=== PATIENT | female | born 1970 | race Caucasian/White ===

== ENCOUNTER → 2018-11-30 08:20 | Outpatient (CLI) | payer OTHER ==
[2018-11-30 09:15] LABS: HCG URINE NEGATIVE (NEGATIVE)
== END | disposition home or self-care (01) ==
LOC: D.CT 08:20
PROVIDERS: ATTEND Nurse Practitioner Family
DX: R19.00 Intra-abdominal and pelvic swelling, mass and lump, unspecified site (principal)

== ENCOUNTER → 2018-12-24 11:10 | Outpatient (CLI) | payer OTHER | END | disposition home or self-care (01) | LOC: D.RAD 11:10 | PROVIDERS: ATTEND Pain Medicine Interventional Pain Medicine | DX: M54.5 Low back pain (principal) ==

== ENCOUNTER → 2019-01-20 09:33 | Outpatient (CLI) | payer OTHER | END | disposition home or self-care (01) | LOC: D.US 09:33 | PROVIDERS: ATTEND Family Medicine | DX: N83.209 Unspecified ovarian cyst, unspecified side (principal) ==

== ENCOUNTER 2019-03-18 16:08 | Emergency (ER) | payer OTHER ==
[~2019-03-18] VITALS: Ht 170.2 cm; Wt 86.4 kg
[2019-03-18 16:16] VITALS: Ht 170.2 cm; Wt 86.4 kg
[2019-03-18] MEDS ORDERED: ULTRAM50 MG PO (16:18)
[2019-03-18] MEDS ORDERED: [UNRECOGNIZED DRUG - OTHER] (16:18)
[2019-03-18 16:45] LABS: BASOPHILS 0.4 % (0-2); EOSINOPHILS 1.6 % (0-7); IMMATURE GRANULOCYTES 0.4 % (0-5); LYMPHOCYTES 26.8 % (15-50); MCH 22.3 pg (26.0-34.0); MCHC 30.3 g/dL (31.0-37.0); MCV 73.5 fL (80.0-100.0); MEAN PLATELET VOLUME 9.5 fL (7.4-10.4); MONOCYTES 5.5 % (2-11); NEUTROPHILS 65.3 % (40-80); PLATELET COUNT 309 10x3/uL (130-400); RBC 4.49 10x6/uL (4.00-5.40); RDW 17.9 % (11.5-14.5); WBC 11.4 10x3/uL (4.8-10.8)
[2019-03-18 17:02] LABS: APTT 28.3 SECONDS (22.8-39.4); INR 0.98 (0.85-1.17); PROTIME 12.5 SECONDS (11.6-15.0)
[2019-03-18 17:13] LABS: ALBUMIN 3.4 g/dL (3.4-5.0); ALKALINE PHOSPHATASE 78 U/L (46-116); ALT (SGPT) 28 U/L (10-68); BILIRUBIN - TOTAL 0.47 mg/dL (0.2-1.3); CARBON DIOXIDE 30.3 mmol/L (21.0-32.0); CHLORIDE - SERUM 105 mmol/L (98-107); CKMB 0.7 U/L (0.0-3.6); CREATININE - SERUM 0.6 mg/dL (0.6-1.3); POTASSIUM - SERUM 5.2 mmol/L (3.5-5.1); PROTEIN - SERUM 7.4 g/dL (6.4-8.2); SODIUM 141 mmol/L (136-145); eGFR NON AFRICAN AMERICAN > 90 mL/min (90-120)
[2019-03-18 17:16] LABS: TROPONIN-I < 0.017 ng/mL (0.000-0.060)
[2019-03-18 17:34] LABS: GLUCOSE 103 mg/dL (74-106)
[2019-03-18 17:37] LABS: CALCIUM 8.6 mg/dL (8.5-10.1)
[2019-03-18 17:39] LABS: CREATINE KINASE 121 UL (21-215)
[2019-03-18 17:43] LABS: CALC OSMOLALITY 278 mosm/kg (275-300); UREA NITROGEN 7 mg/dL (7-18)
[2019-03-18 19:06] VITALS: BP 121/80
== END 2019-03-18 19:07 | disposition home or self-care (01) ==
LOC: D.ER 16:08
PROVIDERS: Family Medicine
DX: R07.9 Chest pain, unspecified (principal)

== ENCOUNTER → 2019-05-19 08:13 | Outpatient (CLI) | payer OTHER ==
[2019-03-18 16:16] VITALS: BMI 29.8
[~2019-05-19 08:13] MED LIST: ULTRAM50 MG PO; [UNRECOGNIZED DRUG - OTHER]
== END | disposition home or self-care (01) ==
LOC: D.HCCARDIO 05-05 08:30
PROVIDERS: ATTEND Internal Medicine Interventional Cardiology
DX: I20.9 Angina pectoris, unspecified (principal)

== ENCOUNTER 2020-09-27 18:40 | Emergency (ER) | payer MEDICAID ==
[~2020-09-27] VITALS: Ht 170.2 cm; Wt 95.0 kg
[2020-09-27 18:45] VITALS: BP 151/86; Ht 170.2 cm; Wt 95.0 kg
[2020-09-27] MEDS ORDERED: CYCLOBENZAPRINE10 MG PO (18:47)
[2020-09-27] MEDS ORDERED: COLACE100 MG PO (18:47)
[2020-09-27] MEDS ORDERED: ULTRAM50 MG PO (18:48)
[2020-09-27] MEDS ORDERED: NEURONTIN600 MG PO (18:48)
[2020-09-27] MEDS ORDERED: CYMBALTA30 MG PO (18:48)
[2020-09-27 19:19] LABS: BASOPHILS 0.2 % (0-2); EOSINOPHILS 2.4 % (0-7); HEMATOCRIT 46.7 % (36.0-48.0); HEMOGLOBIN 15.2 g/dL (12-16); IMMATURE GRANULOCYTES 0.2 % (0-5); LYMPHOCYTE ABS# 2.54 10x3/uL (1.18-3.74); MCH 29.5 pg (26.0-34.0); MCHC 32.5 g/dL (31.0-37.0); MCV 90.7 fL (80.0-100.0); MEAN PLATELET VOLUME 9.1 fL (7.4-10.4); MONOCYTES 6.8 % (2-11); NEUTROPHIL ABS# 5.38 10x3/uL (1.56-6.13); NEUTROPHILS 61.4 % (40-80); RBC 5.15 10x6/uL (4.00-5.40); RDW 13.9 % (11.5-14.5); WBC 8.8 10x3/uL (4.8-10.8)
[2020-09-27 19:32] LABS: PLATELET COUNT 241 10x3/uL (130-400)
[2020-09-27 20:10] LABS: CKMB 0.2 U/L (0.0-3.6); CREATINE KINASE 54 UL (21-215); THYROID STIMULATING HORMONE 1.26 uIU/mL (0.36-3.74); TROPONIN-I < 0.017 ng/mL (0.000-0.060)
[2020-09-27 21:01] LABS: UDS - AMPHET NEGATIVE QUAL (NEGATIVE); UDS - BARB NEGATIVE QUAL (NEGATIVE); UDS - BENZO NEGATIVE QUAL (NEGATIVE); UDS - COCAINE NEGATIVE QUAL (NEGATIVE); UDS - OPIATE NEGATIVE QUAL (NEGATIVE); UDS - PCP NEGATIVE QUAL (NEGATIVE); UDS - THC NEGATIVE QUAL (NEGATIVE)
[2020-09-27 21:24] LABS: ANION GAP 12.3 mmol/L (8-16); CALCIUM 8.9 mg/dL (8.5-10.1); CARBON DIOXIDE 25.5 mmol/L (21.0-32.0); CREATININE - SERUM 0.9 mg/dL (0.6-1.3); POTASSIUM - SERUM 3.8 mmol/L (3.5-5.1)
[2020-09-27 21:27] LABS: BACTERIA FEW HPF (NONE SEEN); BILIRUBIN NEGATIVE (NEGATIVE); KETONE NEGATIVE (NEGATIVE); NITRITE NEGATIVE (NEGATIVE); SQUAMOUS EPITHELIAL 0-5 HPF (0-4); UROBILINOGEN NORMAL mg/dL (< 2); WHITE CELLS - URINE 0-5 HPF (0-4)
[2020-09-27 21:30] LABS: ALBUMIN 3.5 g/dL (3.4-5.0); BILIRUBIN - TOTAL 0.35 mg/dL (0.2-1.3); MAGNESIUM - SERUM 2.2 mg/dL (1.8-2.4); PROTEIN - SERUM 7.6 g/dL (6.4-8.2)
== END 2020-09-27 22:15 | disposition home or self-care (01) ==
LOC: D.ER 18:40
PROVIDERS: Family Medicine
DX: R25.1 Tremor, unspecified (principal); G62.9 Polyneuropathy, unspecified; R56.9 Unspecified convulsions

== ENCOUNTER 2021-01-09 14:35 | Outpatient (CLI) | payer OTHER ==
[2020-09-27 18:45] VITALS: BMI 32.8
[~2021-01-09 14:35] MED LIST changes: +COLACE100 MG PO; +CYCLOBENZAPRINE10 MG PO; +CYMBALTA30 MG PO; +NEURONTIN600 MG PO
== END 2021-01-09 23:59 | disposition home or self-care (01) ==
LOC: D.MAMMO 14:35
PROVIDERS: ATTEND Family Medicine
DX: Z12.31 Encounter for screening mammogram for malignant neoplasm of breast (principal)

== ENCOUNTER → 2021-01-17 09:02 | Outpatient (CLI) | payer OTHER ==
[2020-09-27 18:45] VITALS: BMI 32.8
[2021-01-17 10:08] LABS: BASOPHILS 0.7 % (0-2); EOSINOPHILS 1.1 % (0-7); HEMATOCRIT 48.1 % (36.0-48.0); HEMOGLOBIN 15.5 g/dL (12-16); LYMPHOCYTES 18.5 % (15-50); MCHC 32.3 g/dL (31.0-37.0); MCV 89.8 fL (80.0-100.0); MEAN PLATELET VOLUME 8.1 fL (7.4-10.4); MONOCYTES 5.7 % (2-11); RBC 5.35 10x6/uL (4.00-5.40); RDW 14.2 % (11.5-14.5); WBC 11.4 10x3/uL (4.8-10.8)
[2021-01-17 10:12] LABS: PLATELET COUNT 309 10x3/uL (130-400)
[2021-01-17 11:02] LABS: ALBUMIN 3.9 g/dL (3.4-5.0); BILIRUBIN - TOTAL 0.44 mg/dL (0.2-1.3); CALCIUM 9.1 mg/dL (8.5-10.1); CARBON DIOXIDE 30.2 mmol/L (21.0-32.0); CREATININE - SERUM 0.9 mg/dL (0.6-1.3); POTASSIUM - SERUM 4.2 mmol/L (3.5-5.1); PROTEIN - SERUM 8.1 g/dL (6.4-8.2); T4 THYROXIN - FREE 0.85 ng/dL (0.76-1.46); THYROID STIMULATING HORMONE 1.98 uIU/mL (0.36-3.74)
[2021-01-17 11:17] LABS: ERYTHROCYTE SEDIMENTATION RATE 7 mm/hr (0-30)
[2021-01-18 15:13] LABS: SPE - ALBUMIN 3.8 g/dL (2.9-4.4); SPE - ALPHA-1 GLOBULIN 0.2 g/dL (0.0-0.4); SPE - ALPHA-2 GLOBULIN 0.9 g/dL (0.4-1.0); SPE - BETA GLOBULIN 1.4 g/dL (0.7-1.3); SPE - GAMMA GLOBULIN 1.4 g/dL (0.4-1.8); SPE - M-SPIKE Not Observed g/dL (Not Observed); SPE - TOTAL PROTEIN 7.7 g/dL (6.0-8.5)
== END | disposition home or self-care (01) ==
LOC: D.LAB 09:02
PROVIDERS: ATTEND Psychiatry & Neurology Neurology
DX: G60.9 Hereditary and idiopathic neuropathy, unspecified (principal)